=== PATIENT | male | born 1955 | race Two or more races ===

== ENCOUNTER 2024-09-29 16:42 | Emergency (ER) | payer SELFPAY ==
[2024-09-29 16:51] VITALS: BP 216/122; PULSE 79; RESP 16; TEMP 36.9
--- NOTE | 2024-09-29 16:58 | PD.EDMEDCL ---
ED Medical Clearance RME/HPI General Chief complaint: Medical Clearance Stated complaint: MEDICAL CLEARANCE Time Seen by Provider: 09/29/24 16:57 Arrival date/time: 09/29/24 16:42 RME / HPI RME / HPI Narrative: 69-year-old male patient with significant history of hypertension, currently taking lisinopril, but just only take lisinopril during the night, did not take it today, came in for medical clearance due to elevated blood pressure. Currently patient is also complaining of head described as dull ache, severity mild. Denies any chest pain denies any neck pain denies any other complaints no medication was taken prior to arrival. Related Information Allergies Allergy/AdvReac Type Severity Reaction Status Date / Time Unable to Assess Allergy Verified 09/29/24 17:36 Review of Systems Review of Systems Narrative Review of Systems: Review of system reviewed and within normal limits except mentioned in HPI ED Exam Narrative Physical exam: VITAL SIGNS: Reviewed. GENERAL APPEARANCE: Alert and interactive, follows commands, no acute distress, HEAD AND FACE: Non-traumatic. ENT: PERRL, pink conjunctivitis, eyelid no trauma, Mucous membrane moist. NECK: Supple, nontender, no nuchal rigidity. CHEST: No tenderness, no crepitus, no paradoxical movement, no retractions. LUNGS: Clear, well ventilated, symmetric, no rales, no wheezing, no ronchi, no stridor, good breath sounds bilaterally. HEART: Regular rate, regular rhythm, no murmur, no gallops. ABDOMEN: Soft, positive bowel sounds, nondistended, no guarding, nontender, no rebound, no masses, RECTAL: Deferred. GENITAL: Deferred. NEUROLOGICAL: Gross motor function intact sensory function intact, Appropriate for age. MUSCULOSKELETAL: low back nontender, full range of motion. EXTREMITIES: Nontender, full range of motion. SKIN: Color pink, dry, no rash, no lacerations, no abrasions, no contusions. LYMPHATICS: Deferred. Course Quality Measures none Orders Category Date Time Status Acetaminophen Tab [Tylenol ES Tab] Med 09/29/24 16:57 Discontinued 1,000 mg PO X1 ONE NIFEdipine [Procardia] Med 09/29/24 16:57 Discontinued 20 mg PO X1 ONE Vital Signs Vital signs: Vital Signs Temperature 98.5 F 09/29/24 16:51 Pulse Rate 79 09/29/24 16:51 Respiratory Rate 16 09/29/24 16:51 Blood Pressure 216/122 H 09/29/24 16:51 Medical Clearance MDM Narrative MDM Narrative:: 69-year-old male patient with significant history of hypertension, currently taking lisinopril, but just only take lisinopril during the night, did not take it today, came in for medical clearance due to elevated blood pressure. Currently patient is also complaining of head described as dull ache, severity mild. Denies any chest pain denies any neck pain denies any other complaints no medication was taken prior to arrival. Patient is refusing medications and refusing further management. Patient is medically cleared for incarceration Patient data External records reviewed:: None Clinical information provided by:: patient Social determinants that could affect healthcare access:: none Patient has the following chronic illnesses:: Hypertension How is presenting disease/condition affected by chronic disease/condition?: exacerbated by Evaluation data The following diagnostics were reviewed and interpreted by me:: other (specify) (None) Lab and/or radiology exams considered but not ordered:: None Interpretation Summary: None Medications / Prescriptions Medications or Prescriptions considered but not ordered:: None Medication administrations:: Medication Administration History Discontinued Medications Acetaminophen (Acetaminophen 500 Mg Tablet) 1,000 mg PO X1 ONE Stop: 09/29/24 16:58 Last Admin: 09/29/24 17:37 Dose: Not Given Documented By: TROY Non-Admin Reason: Patient Refused Nifedipine (Nifedipine 10 Mg Capsule) 20 mg PO X1 ONE Stop: 09/29/24 16:58 Last Admin: 09/29/24 17:37 Dose: Not Given Documented By: TROY Non-Admin Reason: Patient Refused Refused medication Consultations Consultation(s) initiated? (list below): No Diagnosis Medical Clearance Differential Diagnosis: other (Hypertensive urgency, medical cleared for incarceration) Most likely diagnosis given after review of the tests above:: Hypertensive urgency, medical clearance for incarceration Admission Indicated Admission indicated?: not indicated Admission Request Was there a request for admission?: No Disposition Plan Disposition Plan: Discharge Discharge Attestation Discharge Attestation: The patient and all family members were given an opportunity to ask questions and understood the discharge instructions. Discharge instructions specifically effects, indications for sooner follow up or return to the emergency department, and the expected course of current diagnosis. Patient condition: Stable Discharge Plan Plan Patient Disposition: Residential/Court/Law Prescriptions/Referrals Referrals: No Primary/Family,Physician [Primary Care Provider] - In 1 week Problem List Clinical Impression: Hypertensive urgency, Medical clearance for incarceration Patient/Caregiver Discharge Instructions Discharge Activity: activity as tolerated Education Materials: Reducing Your Health Risks ... Additional Instructions: Thank you for the opportunity for serving you today. You refused medication and further management Print Language: Spanish
[2024-09-29 17:20] VITALS: BMI 25.7
--- NOTE | 2024-09-29 17:26 | PC.NURSE ---
Patient brought in by [employer] officer Tristan, for medical clearance and upon triage assessment, patient refusing all medical treatment and refusing to answer any questions, however, did answer when asked name, , and date, patient alert and oriented x 4. Provider Diana UNDERWOOD made aware.
--- NOTE | 2024-09-29 17:34 | PC.NURSE ---
Officer Tristan, cited patient out to er and patient walked out of the ER ambulance bay,
== END 2024-09-29 17:38 ==
PROVIDERS: Emergency Provider Emergency Medicine
DX: Z02.89 Encounter for other administrative examinations (principal); I16.0 Hypertensive urgency; I10 Essential (primary) hypertension
CPT/HCPCS: 99282